=== PATIENT | male | born 1995 | race Caucasian/White ===

== ENCOUNTER 2018-06-18 07:00 | Emergency (ER) | payer OTHER ==
[~2018-06-18] VITALS: Ht 172.7 cm; Wt 72.6 kg
[2018-06-18 07:05] VITALS: BP 133/65
--- NOTE | 2018-06-18 07:07 | NUR ---
pt ambulated to bed 9
--- NOTE | 2018-06-18 07:08 | NUR ---
pt c/o cold symptoms x 3 days, cough and congestion, chills, no other complaints. denies nvd/cp/sob. 0/10 pain hx---none
[2018-06-18 07:36] VITALS: BP 133/65
== END 2018-06-18 07:36 | disposition home or self-care (01) ==
LOC: MED 07:00
DX: J06.9 Acute upper respiratory infection, unspecified (principal)
CPT/HCPCS: 99283